=== PATIENT | female | born 1990 | race Two or more races ===

== ENCOUNTER 2025-09-03 19:15 | Outpatient (CLI) | payer OTHER ==
[2025-09-03 18:00] VITALS: BP 100/68
[2025-09-03 18:41] VITALS: BP 100/68
[2025-09-03] MEDS ORDERED: PRENATAL + DHA1 EAC1 PO (19:44)
[2025-09-03] MEDS ORDERED: RINGERS SOLUTION,LACTATED 1,000 ML IV SCH (19:45)
[2025-09-03] MEDS ORDERED: MORPHINE SULFATE 4 MG/ML CARTRIDGE IV PRN (19:45)
[2025-09-03 20:41] LABS: BASO % 0.5 % (0.1-1.2); EOS # 0.07 (0.04-0.54); EOS % 0.8 % (0.7-7.0); INR 0.94; LYMPH # 1.63 (1.18-3.74); LYMPH % 19.3 % (19.3-53.1); MEAN PLATELET VOLUME 13.50 fl (9.4-12.4); MONO # 1.06 (0.24-0.82); NEUT # 5.56 (1.56-6.13); NEUT % 66.0 % (34.0-71.1); RED CELL DISTRIBUTION WIDTH 12.4 % (11.6-14.4)
[2025-09-03 20:43] LABS: MONO % 12.6 % (4.7-12.5)
[2025-09-03 21:20] VITALS: BP 97/60
[2025-09-03 23:42] VITALS: BP 90/56
[2025-09-04 04:10] VITALS: BP 90/52
[2025-09-04 07:31] VITALS: BP 101/66; O2SAT 98
[2025-09-04] MEDS ORDERED: SERTRALINE HCL 50 MG TABLET PO SCH (09:00)
[2025-09-04 11:54] VITALS: BP 105/67
[2025-09-04 13:09] VITALS: BP 105/67
== END 2025-09-04 14:15 | disposition home or self-care (01) ==
LOC: OBS/DEL 19:15
PROVIDERS: ATTEND Obstetrics & Gynecology Gynecology
DX: O26.893 Other specified pregnancy related conditions, third trimester (principal); R10.20 Pelvic and perineal pain unspecified side; Z3A.33 33 weeks gestation of pregnancy

== ENCOUNTER 2025-10-10 16:53 | Inpatient (IN) | payer OTHER ==
[~2025-10-10] VITALS: Ht 162.6 cm; Wt 86.2 kg
[~2025-10-10 16:53] MED LIST: PRENATAL + DHA1 EAC1 PO
[2025-10-10 17:00] VITALS: BP 122/84
[2025-10-10 18:06] LABS: BASO % 0.3 % (0.1-1.2); EOS # 0.03 (0.04-0.54); EOS % 0.3 % (0.7-7.0); LYMPH # 1.46 (1.18-3.74); LYMPH % 13.3 % (19.3-53.1); MONO # 1.32 (0.24-0.82); NEUT # 8.09 (1.56-6.13); NEUT % 73.8 % (34.0-71.1); RED CELL DISTRIBUTION WIDTH 12.9 % (11.6-14.4)
[2025-10-10] MEDS ORDERED: MORPHINE SULFATE 4 MG/ML VIAL IV PRN ×2 (18:15→23:45)
[2025-10-10] MEDS ORDERED: RINGERS SOLUTION,LACTATED 1,000 ML IV SCH ×2 (18:15→23:45)
[2025-10-10 18:20] LABS: MONO % 12.1 % (4.7-12.5)
[2025-10-10 18:43] LABS: INR 0.94
[2025-10-10] MEDS ORDERED: OXYTOCIN 20 UNITS/500ML RL PIGGYBAG IV ONE (19:16)
[2025-10-10 19:51] VITALS: BP 124/70
[2025-10-10] MEDS ORDERED: OXYTOCIN 500 ML IV SCH (23:15)
[2025-10-10 23:29] VITALS: BP 103/65
[2025-10-10] MEDS ORDERED: OXYTOCIN 10 UNITS/ML VIAL ONE (23:37)
[2025-10-10] MEDS ORDERED: ERYTHROMYCIN BASE OPHT 1GM EACH TUBE OP ONE (23:38)
[2025-10-10] MEDS ORDERED: ONDANSETRON HCL 2 MG/ML VIAL IV PRN (23:45)
[2025-10-10] MEDS ORDERED: OXYTOCIN 1,000 ML IV SCH (23:45)
[2025-10-11] MEDS ORDERED: ACETAMINOPHEN 500 MG GEL..CAP PO SCH
[2025-10-11] MEDS ORDERED: KETOROLAC TROMETHAMINE 30 MG VIAL IV SCH
[2025-10-11] MEDS ORDERED: CEFAZOLIN SODIUM 1,000 MG VIAL ONE (00:25)
[2025-10-11] MEDS ORDERED: GABAPENTIN 300 MG CAPSULE PO SCH (01:00)
[2025-10-11] MEDS ORDERED: SIMETHICONE 125 MG CAPSULE PO SCH (01:00)
[2025-10-11] MEDS ORDERED: CEFAZOLIN SODIUM 1,000 MG VIAL IV ONE (02:00)
[2025-10-11] MEDS ORDERED: OXYTOCIN 10 UNITS/ML VIAL ONE (03:32)
[2025-10-11 04:09] VITALS: BP 118/79
[2025-10-11 08:00] VITALS: BP 120/76
[2025-10-11] MEDS ORDERED: KETOROLAC TROMETHAMINE 10 MG TABLET PO SCH (08:00)
[2025-10-11] MEDS ORDERED: OxyCODONE HCL 5 MG TABLET (ROXICODONE) PO PRN (08:00)
[2025-10-11] MEDS ORDERED: DOCUSATE SODIUM 100MG CAP PO SCH (09:00)
[2025-10-11 16:00] VITALS: BP 114/77
[2025-10-11 17:39] LABS: BASO % 0.1 % (0.1-1.2); EOS # 0.02 (0.04-0.54); EOS % 0.1 % (0.7-7.0); LYMPH # 1.44 (1.18-3.74); LYMPH % 10.6 % (19.3-53.1); MONO # 1.66 (0.24-0.82); NEUT # 10.39 (1.56-6.13); NEUT % 76.7 % (34.0-71.1); RED CELL DISTRIBUTION WIDTH 13.1 % (11.6-14.4)
[2025-10-11 17:55] LABS: MONO % 12.2 % (4.7-12.5)
[2025-10-12] VITALS: BP 111/74
[2025-10-12 08:00] VITALS: BP 97/65
[2025-10-13] VITALS: BP 98/61
[2025-10-13 08:00] VITALS: BP 116/80
== END 2025-10-13 13:46 | disposition home or self-care (01) | DRG 788 ==
LOC: OB/GYN 16:53 → LDR 16:53 → OB/GYN 10-11 01:13
PROVIDERS: Obstetrics & Gynecology; ADMIT Obstetrics & Gynecology; ATTEND Obstetrics & Gynecology
PROC: 10D00Z1 Extraction of Products of Conception, Low, Open Approach (ICD-10-PCS; principal; 2025-10-10)
PROC: 4A1HXCZ Monitoring of Products of Conception, Cardiac Rate, External Approach (ICD-10-PCS; 2025-10-10)
DX: O82 Encounter for cesarean delivery without indication (principal); O62.1 Secondary uterine inertia; O36.8130 Decreased fetal movements, third trimester, not applicable or unspecified; Z3A.38 38 weeks gestation of pregnancy; Z37.0 Single live birth